=== PATIENT | female | born 1965 | race Caucasian/White ===

== ENCOUNTER 2018-02-14 14:25 | Emergency (ER) | payer BC ==
[2018-02-14 15:15] VITALS: BP 112/63
--- NOTE | 2018-02-14 15:45 | UC ---
UC General HPI - HPI Summary HPI Summary: pt c/o a tender red, soft bump to top of L shoulder for about a week. there area is a little less swollen now. no fever or streaking. no hx mrsa. - History of Current Complaint Chief Complaint: FLORIDALMAkin Stated Complaint: LUMP IN (L) SHOULDER Time Seen by Provider: 02/14/18 15:37 Hx Obtained From: Patient Hx Last Menstrual Period: 1 YR AGO Onset/Duration: Gradual Onset Timing: Constant Pain Intensity: 2 Aggravating: nothing Alleviating: nothing Associated Signs & Symptoms: Negative: Fever - Allergy/Home Medications Allergies/Adverse Reactions: Allergies Allergy/AdvReac Type Severity Reaction Status Date / Time amoxicillin AdvReac See Comment Verified 02/14/18 15:10 Home Medications: Home Medications NK [No Home Medications Reported] 02/14/18 [History Confirmed 02/14/18] PMH/Surg Hx/FS Hx/Imm Hx Previously Healthy: Yes Other History Of: Negative For: HIV, Hepatitis B, Hepatitis C, Anticoagulant Therapy - Surgical History Surgical History: None - Family History Known Family History: Positive: Cardiac Disease, Diabetes - Social History Occupation: Employed Full-time Lives: With Family Alcohol Use: None Substance Use Type: None Smoking Status (MU): Heavy Every Day Tobacco Smoker Type: Cigarettes Amount Used/How Often: 3/4 pack daily Length of Time of Smoking/Using Tobacco: 25 YRS Have You Smoked in the Last Year: Yes - Immunization History Most Recent Influenza Vaccination: has not had Vaccination Up to Date: Yes Review of Systems Constitutional: Negative Skin: Rash - top L shoulder Eyes: Negative ENT: Negative Respiratory: Negative Cardiovascular: Negative Gastrointestinal: Negative Genitourinary: Negative Motor: Negative Neurovascular: Negative Musculoskeletal: Negative Neurological: Negative Psychological: Negative Is Patient Immunocompromised?: No All Other Systems Reviewed And Are Negative: Yes Physical Exam Triage Information Reviewed: Yes Appearance: Well-Appearing Vital Signs: Initial Vital Signs Temp 98.9 F 02/14/18 15:09 Pulse 61 02/14/18 15:09 Resp 16 02/14/18 15:09 BP 112/63 02/14/18 15:09 Pulse Ox 98 02/14/18 15:09 Vital Signs Reviewed: Yes Eyes: Positive: Conjunctiva Clear ENT: Positive: Normal ENT inspection Neck: Positive: Supple, Nontender, No Lymphadenopathy Respiratory: Positive: Lungs clear, Normal breath sounds Cardiovascular: Positive: RRR, No Murmur Abdomen Description: Positive: Nontender, No Organomegaly, Soft Bowel Sounds: Positive: Present Musculoskeletal: Positive: ROM Intact Neurological: Positive: Alert Psychological: Positive: Age Appropriate Behavior Skin Exam: Normal, Other - 1.5cm area of swelling and fluctuance on top of L shoulder. puss/sebum drained with gentle pressure. no surrounding erythema. Procedures - Procedure Summary Procedure Summary: site prep betadine. local with 30g and 2ml of 1% lidocaine. tip of #11 claudine used to make superficial stab, puss and sebum drained. site flushed sterile water. bacitracin and dressing applied. pt tolerated well. sterile technique used. Course/Dx - Course Course Of Treatment: I& D abscess l shoulder - Differential Dx - Multi-Symptom Provider Diagnoses: Infected cyst L shoulder Discharge - Sign-Out/Discharge Documenting (check all that apply): Discharge - Discharge Plan Condition: Stable Disposition: HOME Patient Education Materials: Abscess Incision and Drainage (DC) Referrals: STANTON Carroll [Primary Care Provider] - If Needed Patrice Garcia MD [Medical Doctor] - 3 Days - Billing Disposition and Condition Condition: STABLE Disposition: HOME
[2018-02-14] MEDS ORDERED: Lidocaine 1% MPF* 2 ML VIAL INJ ONE (15:47)
== END 2018-02-14 16:16 | disposition home or self-care (01) ==
LOC: UCCORT 14:25
DX: L72.9 Follicular cyst of the skin and subcutaneous tissue, unspecified (principal); Z88.0 Allergy status to penicillin; F17.210 Nicotine dependence, cigarettes, uncomplicated
CPT/HCPCS: 10060; 99211; G0463

== ENCOUNTER 2019-11-21 11:30 | Emergency (ER) | payer BC ==
[2019-11-21 12:33] VITALS: BP 103/68
[2019-11-21] MEDS ORDERED: Fluorescein Sodium TOPICAL* 1 MG TEST STRIP OPHTHALMIC ONE (12:55)
--- NOTE | 2019-11-21 13:25 | UC ---
Eye Complaint HPI - HPI Summary HPI Summary: 54 year old female with no PMH, typically low blood pressure, presents with redness in left eye x 24 hours, started last night, states looked like "popped blood vessel" last night, now more diffuse. no pain, vision without changes, no pain moving eye. no other symptoms. denies trauma/ irritation. concerned about pink eye as she is watching her grand children this weekend. no prior occurrence - History of Current Complaint Chief Complaint: UCEye Stated Complaint: LT EYE COMPLAINT Time Seen by Provider: 11/21/19 12:45 Hx Obtained From: Patient Hx Last Menstrual Period: 2015 ?: No Onset/Duration: Sudden Onset, Lasting Days Timing: Constant Severity Currently: None Pain Intensity: 0 Pain Scale Used: 0-10 Numeric Location of Injury: Conjunctiva Aggravating Factor(s): Nothing Alleviating Factor(s): Nothing Associated Signs And Symptoms: Positive: Negative, Drainage (Clear) - ? however has allergies and often has runny clear drainage - Allergies/Home Medications Allergies/Adverse Reactions: Allergies Allergy/AdvReac Type Severity Reaction Status Date / Time amoxicillin AdvReac See Comment Verified 11/21/19 12:36 Home Medications: Home Medications Melanoma Tx 11/21/19 [History] buPROPion TAB* [Wellbutrin TAB*] 150 mg PO BID 11/21/19 [History Confirmed 11/21] PMH/Surg Hx/FS Hx/Imm Hx Previously Healthy: Yes Other History Of: Negative For: HIV, Hepatitis B, Hepatitis C, Anticoagulant Therapy - Surgical History Surgical History: None - Family History Known Family History: Positive: Cardiac Disease, Diabetes - Social History Occupation: Employed Full-time Alcohol Use: None Substance Use Type: None Smoking Status (MU): Former Smoker Type: Cigarettes Amount Used/How Often: 3/4 pack daily Length of Time of Smoking/Using Tobacco: 25 YRS Have You Smoked in the Last Year: Yes When Did the Patient Quit Smoking/Using Tobacco: 05/15/19 - Immunization History Most Recent Influenza Vaccination: has not had Vaccination Up to Date: Yes Review of Systems All Other Systems Reviewed And Are Negative: Yes Constitutional: Negative: Fever, Chills, Fatigue Eyes: Positive: Drainage, Eye Redness. Negative: Blurred Vision, Diplopia, Photophobia ENT: Negative: Dental Pain, Nasal Discharge Respiratory: Negative: Shortness Of Breath, Cough Is Patient Immunocompromised?: No Physical Exam Triage Information Reviewed: Yes Appearance: Well-Appearing, No Pain Distress, Well-Nourished Vital Signs: Initial Vital Signs Temp 98 F 11/21/19 12:25 Pulse 58 11/21/19 12:25 Resp 18 11/21/19 12:25 BP 103/68 11/21/19 12:25 Pulse Ox 98 11/21/19 12:25 Vital Signs Reviewed: Yes Eyes: Positive: Conjunctiva Inflamed, Other: - left eye from - diffuse erythema, no swelling, no periorbial edema. full EMOI without pain, PERRLA without pain. no sinus pressure, tenderness. fluor staining + for uptake in ~ 3 position, no FB seen. ENT: Positive: Hearing grossly normal. Negative: Sinus tenderness Neurological Exam: Normal Psychological Exam: Normal Skin Exam: Normal Eye Complaint Course/Dx - Course Course Of Treatment: subconjunctival hemorrhage with corneal abrasion on examination. - Scratch on eye/ Corneal abrasion- Antibiotic eye drops every 4 hours while awake x 5 days - Return with eye pain, increased redness, decreased vision/ vision changes. - Ok to use saline eye drops only in eyes for dryness, such as natural tears. Do not use any eye drops that "get the red out" - Differential Dx/Diagnosis Differential Diagnosis/HQI/PQRI: Penetrating Injury, Periorbital Cellulitis, Uveitis Provider Diagnosis: Corneal abrasion, Subconjunctival hemorrhage Discharge ED - Sign-Out/Discharge Documenting (check all that apply): Patient Departure All imaging exams completed and their final reports reviewed: No Studies - Discharge Plan Condition: Good Disposition: HOME Prescriptions: Ciprofloxacin 0.3% OPTH.LARRY* [Cipro 0.3% Opth*] 2 drop LEFT EYE Q4H #1 btl Patient Education Materials: Corneal Abrasion (DC) Referrals: Ade Garay PA [Primary Care Provider] - Additional Instructions: - Scratch on eye/ Corneal abrasion- Antibiotic eye drops every 4 hours while awake x 5 days - Return with eye pain, increased redness, decreased vision/ vision changes. - Ok to use saline eye drops only in eyes for dryness, such as natural tears. Do not use any eye drops that "get the red out" - Billing Disposition and Condition Condition: GOOD Disposition: Home - Attestation Statements Provider Attestation: Per institutional requirements, I have reviewed the chart, however, I was not consulted specifically or made aware of this patient by the midlevel provider. I did not personally evaluate, interact with , or disposition this patient.
== END 2019-11-21 13:25 | disposition home or self-care (01) ==
LOC: UCCORT 11:30
DX: S05.02XA Injury of conjunctiva and corneal abrasion without foreign body, left eye, initial encounter (principal); H11.32 Conjunctival hemorrhage, left eye; Z88.0 Allergy status to penicillin; Z87.891 Personal history of nicotine dependence; X58.XXXA Exposure to other specified factors, initial encounter; Y92.9 Unspecified place or not applicable
CPT/HCPCS: 99212; A9270-GY; G0463

== ENCOUNTER 2020-01-24 11:36 | Emergency (ER) | payer BC ==
--- OUTSIDE RECORDS SUMMARY | 2020-01-24 12:29 | XMS REPORT | Continuity of Care Document ---
:1965 External Reference #:[id number] Author Name Ade Garay PA Address [address] [place] [address] Care Team Providers Name Role Phone Ade Garay PA - Medical Care Team Information Financial Advisor Trainee [phone] Problems Active Problems Provider Date Undifferentiated connective tissue disease Onset: Tobacco user Ade Garay PA Onset: 04/25/2019 Adjustment disorder with mixed emotional features Ade Garay PA Onset: Hyperlipidemia Ade Garay PA Onset: 04/25/2019 Social History Type Date Description Comments Sex Unknown Cigarette Use Pack Years - 20 Tobacco Use Start: Unknown End: Quit Used Chantix and Wellbutrin. Smoking Status Reviewed: 01/08/20 Quit Used Chantix and Wellbutrin. ETOH Use Occasionally consumes alcohol Recreational Drug Use Denies Drug Use Tobacco Use Start: Unknown End: Patient is a former Unknown smoker Enjoy Exercising Patient enjoys exercising Tattoo/Piercing Pierced ears Tattoo/Piercing Pierced Navel Smoke Alarms Yes Allergies, Adverse Reactions, Alerts Description No Known Drug Allergies Medications Active Medications SIG Qnty Indications Ordering Date Provider Chantix Continuing take 1 tablet by 56tabs Z71.6 Mishel Gomez, 2019 Month Gunner mouth 2 times per MD 1mg Tablets day for smoking cessation Bupropion 1 by mouth twice 60tabs Z71.6 Mishel Gomez, 05/25/2019 Hydrochloride ER (SR) daily MD 150mg Tablets ER 12HR History Medications Bisacodyl Ec at 6:30 at night on 4tabs Nigel, 09/23/2019 - 5mg the day before your Jeffry Durán M.D. 01/08/2020 Tablets colonoscopy take all 4 bisacodyl tablets Magnesium Citrate 1 pm on the day 296ml Nigel, 09/23/2019 - before your Jeffry Durán M.D. 01/08/2020 1.745GM/30ML colonoscopy drink Solution entire bottle of magnesium citrate Immunizations CPT Code Status Date Vaccine Lot # [id number] Refused 01/08/2020 Influenza Virus Vaccine, Quadrivalent, 36 Mos+, .5ML [id number] Refused 09/16/2019 Influenza Virus Vaccine, Quadrivalent, 36 Mos+, .5ML [id number] Refused 12/09/2018 Influenza Virus Vaccine, Quadrivalent, 36 Mos+, .5ML Vital Signs Date Vital Result Comment 01/08/2020 9:47am BP Systolic 116 mmHg BP Diastolic 70 mmHg Body Temperature 96.5 F Heart Rate 60 /min Respiratory Rate 18 /min Height 67 inches 5'7" Weight 201.12 lb BMI (Body Mass Index) 31.5 kg/m2 BSA (Body Surface Area) 2.03 m2 [place] body weight in kilograms 61 kg O2 % BldC Oximetry 98 % 09/23/2019 2:26pm BP Systolic 105 mmHg BP Diastolic 64 mmHg Heart Rate 55 /min Height 67 inches 5'7" Weight 198.00 lb Pain Level 1 BMI (Body Mass Index) 31.0 kg/m2 BSA (Body Surface Area) 2.01 m2 [place] body weight in kilograms 61 kg O2 % BldC Oximetry 96 % Results Test Acquired Date Facility Test Result H/L Range Note Urine Dipstick 09/16/2019 [facility] Ua Color yellow Yellow Ua Clarity clear Clear Ua Leuko negative Negative Ua Nitrite negative Negative Ua Urobilinogen 35 umol/L High 0.2 - 1.0 E.U./dL Ua Protein negative Negative Ua PH 6.0 Low 6.5-7.5 Ua Blood negative Negative Ua Specific [place] 1.025 1.010-1.030 Ua Ketones negative Negative Ua Bilirubin negative Negative Ua Glucose negative Negative Procedures Date Code Description Status 08/25/2018 [id number] Mammogram Completed 06/20/2011 [id number] Mammogram Completed Medical Devices Description No Information Available Encounters Type Date Location Provider Dx Diagnosis Office Visit 09/23/2019 Surgical Office [facility], [place] Z12.11 Encounter for 2:00p screening for malignant neoplasm of colon Office Visit 09/16/2019 [facility] Ade Garay PA Z00.01 Encounter for 2:00p [facility] general adult medical exam w abnormal findings M54.2 Cervicalgia R21 Rash and other nonspecific skin eruption Z12.11 Encounter for screening for malignant neoplasm of colon Z71.6 Tobacco abuse counseling Assessments Date Code Description Provider 01/08/2020 F43.23 Adjustment disorder with mixed anxiety and Ade Garay PA depressed mood 01/08/2020 Z12.11 Screening for malignant neoplasm of colon Ade Garay PA 01/08/2020 Z71.6 Tobacco abuse counseling Ade Garay PA 09/23/2019 Z12.11 Screening for malignant neoplasm of colon [place] Mcdonough PA 09/16/2019 Z00.01 Encounter for general adult medical examination Ade Garay PA with abnormal findings 09/16/2019 M54.2 Cervicalgia Ade Garay PA 09/16/2019 R21 Rash and other nonspecific skin eruption Ade Garay PA 09/16/2019 Z12.11 Encounter for screening for malignant neoplasm of Ade Garay PA colon 09/16/2019 Z71.6 Tobacco abuse counseling Ade Garay PA Plan of Treatment Future Appointment(s):09/21/2020 2:00 pm - Ade Garay PA at [facility]01/08/2020 - Ade Garay, PAF43.23 Adjustment disorder with mixed anxiety and depressed moodComments:Sy have increased lately. Patient notes some stress .Will restart the Chantix for smoking cessation.Let's see how this works out.Follow up:6 agiegmC52.11 Screening for malignant neoplasm of colonComments:Rather than a colonoscopy, patient elects to do an at home [id number] Tobacco abuse counselingNew Medication:Chantix Continuing Month Gunner 1 mg - take 1 tablet by mouth 2 times per day for smoking cessation Functional Status Functional Condition Comment Date Status Independent with all ADL's Active Mental Status Description No Information Available Referrals Refer to Reason for Referral Status Appt Date Olive Hyman M.D. 54 yo female smoker. Has had a small Closed 2018 erythemic, scaly lesion on the right breast for 1 year. Now w a similar lesion on the left breast. No resolution w steroid or fungal creams. She has been dx for UCTD and is followed by Dr. Flores. Normal Mammo in 2018, Has annual mammo pending. No breast pain or nipple discharge. [address] [place], [place] [phone] [place], [place] 54 yo female former smoker. Neg fam hx of colon Closed cancer. No personal hx. Requests screening colonoscopy. [address] [place] [address] [phone]
[2020-01-24 12:36] VITALS: BP 117/69
[2020-01-24] MEDS ORDERED: Lidocaine 1% MPF* 2 ML VIAL INJ ONE (12:41)
--- NOTE | 2020-01-24 12:51 | UC ---
Skin Complaint HPI - HPI Summary HPI Summary: 54 year old female present with complaint of a raised, red, tender lesion on her left shoulder for the past two weeks. Denies fever, chills, nausea nor vomiting. Has a similar lesion over the same area a few years ago that was drained. - History of Current Complaint Chief Complaint: UCSkin Time Seen by Provider: 01/24/20 12:31 Stated Complaint: SORE RED AREA ON LEFT SHOULDER Hx Obtained From: Patient Hx Last Menstrual Period: 2015 Onset/Duration: Gradual Onset, Lasting Weeks - 2 Pain Intensity: 0 - Allergy/Home Medications Allergies/Adverse Reactions: Allergies Allergy/AdvReac Type Severity Reaction Status Date / Time amoxicillin AdvReac See Comment Verified 01/24/20 12:31 Home Medications: Home Medications buPROPion TAB* [Wellbutrin TAB*] 150 mg PO BID 11/21/19 [History Confirmed 01/23] DOXYcycline CAP(*) [DOXYcycline 100MG CAP(*)] 100 mg PO BID 5 Days #10 cap 01/23 [Rx] Naproxen Sod/Diphenhydramine [Aleve PM 220-25 mg] 1 tab PO BEDTIME 01/24/20 [ History Confirmed 01/24/20] PMH/Surg Hx/FS Hx/Imm Hx Previously Healthy: Yes Other History Of: Negative For: HIV, Hepatitis B, Hepatitis C, Anticoagulant Therapy - Surgical History Surgical History: None - Family History Known Family History: Positive: Cardiac Disease, Diabetes - Social History Alcohol Use: None Substance Use Type: None Smoking Status (MU): Former Smoker Type: Cigarettes Amount Used/How Often: 3/4 pack daily Length of Time of Smoking/Using Tobacco: 25 YRS Have You Smoked in the Last Year: Yes When Did the Patient Quit Smoking/Using Tobacco: 05/15/19 - Immunization History Most Recent Influenza Vaccination: has not had Vaccination Up to Date: Yes Review of Systems All Other Systems Reviewed And Are Negative: Yes Constitutional: Positive: Negative Skin: Positive: Other - see HPI Eyes: Positive: Negative ENT: Positive: Negative Respiratory: Positive: Negative Cardiovascular: Positive: Negative Gastrointestinal: Positive: Negative Genitourinary: Positive: Negative Motor: Positive: Negative Neurovascular: Positive: Negative Musculoskeletal: Positive: Negative Neurological/Mental Status: Positive: Negative Psychological: Positive: Negative Is Patient Immunocompromised?: No Physical Exam Triage Information Reviewed: Yes Appearance: Well-Appearing, No Pain Distress, Well-Nourished Vital Signs: Initial Vital Signs Temp 98.4 F 01/24/20 12:31 Pulse 54 01/24/20 12:31 Resp 13 01/24/20 12:31 BP 117/69 01/24/20 12:31 Pulse Ox 98 01/24/20 12:31 Vital Signs Reviewed: Yes Neck: Positive: Supple, Nontender, No Lymphadenopathy Respiratory: Positive: Chest non-tender, Lungs clear, Normal breath sounds. Negative: Crackles, Rhonchi, Wheezing Cardiovascular: Positive: RRR, No Murmur Musculoskeletal Exam: Normal Neurological Exam: Normal Psychological Exam: Normal Skin: Positive: Significant Lesion(s) - left shoulder 2 cm x 2 cm raised, fluctuant, erythematous lesion. Procedures - Incision and Drainage Left Shoulder Site: Left shoulder, purulent sebacous material expressed. Minimal bleeding. Anesthesia: Topical, Lidocaine - 1% 2cc Instrument(s): Scalpel - 11 blade Course/Dx - Diagnoses Provider Diagnosis: Infected cyst of left shoulder Discharge ED - Sign-Out/Discharge Documenting (check all that apply): Patient Departure All imaging exams completed and their final reports reviewed: No Studies - Discharge Plan Condition: Stable Disposition: HOME Prescriptions: DOXYcycline CAP(*) [DOXYcycline 100MG CAP(*)] 100 mg PO BID 5 Days #10 cap Patient Education Materials: Cyst (ED) Referrals: Ade Garay PA [Primary Care Provider] - Additional Instructions: Cleanse area daily with soap and water, pat dry then cover with a sterile bandage until healed. Take the antibiotics as prescribed. - Billing Disposition and Condition Condition: STABLE Disposition: Home
== END 2020-01-24 13:12 | disposition home or self-care (01) ==
LOC: UCCORT 11:36
DX: L72.3 Sebaceous cyst (principal); Z88.0 Allergy status to penicillin; Z87.891 Personal history of nicotine dependence
CPT/HCPCS: 10060; 99212; G0463